=== PATIENT | female | born 1955 | race Caucasian/White ===

== ENCOUNTER 2020-10-17 04:22 | Day surgery (SDC) | payer OTHER ==
[2020-10-13 14:17] VITALS: BMI 38.9
[2020-10-17] MEDS ORDERED: MIDAZOLAM HCL 2 MG/2 ML SINGLE DOSE VIAL ONE (13:25)
[2020-10-17] MEDS ORDERED: PROPOFOL 20 ML ONE (13:25)
[2020-10-17] MEDS ORDERED: IBUPROFEN 800 MG/8 ML IJ IVPB PRN (13:58)
[2020-10-17] MEDS ORDERED: ONDANSETRON 4 MG/2 ML VIAL IVPUSH PRN (13:58)
[2020-10-17] MEDS ORDERED: IBUPROFEN 600 MG TABLET (FP) PO PRN (13:58)
[2020-10-17] MEDS ORDERED: oxyCODONE HCL 5 MG TABLET PO PRN ×2 (13:58→14:43)
[2020-10-17] MEDS ORDERED: ELECTROLYTE-148 SOLN 1,000 ML IV SCH (14:00)
[2020-10-17] MEDS ORDERED: LACTATED RINGERS SOLUTION 1,000 ML IV SCH (14:45)
[2020-10-17 16:11] VITALS: TEMP 97.8
[2020-10-17] MEDS ORDERED: ONDANSETRON 4 MG/2 ML VIAL ONE (16:38)
[2020-10-17 17:30] VITALS: BP 154/70; PULSE 86
== END 2020-10-17 17:25 | disposition home or self-care (01) ==
LOC: JASU-SURG 04:22
PROVIDERS: ATTEND Obstetrics & Gynecology
PROC: 0UDB7ZX Extraction of Endometrium, Via Natural or Artificial Opening, Diagnostic (ICD-10-PCS; principal; 2020-10-17 13:00)
PROC: 0UJD8ZZ Inspection of Uterus and Cervix, Via Natural or Artificial Opening Endoscopic (ICD-10-PCS; 2020-10-17 13:00)
DX: N84.0 Polyp of corpus uteri (principal)
CPT/HCPCS: 88305-TC; 94760